=== PATIENT | female | born 1945 | race Caucasian/White ===

== ENCOUNTER 2024-12-09 11:41 | Outpatient (CLI) | payer OTHER ==
--- NOTE | 2024-12-09 17:46 | CARDIOLOGY REPORT ---
APPROVED REPORT EXAM: Comprehensive 2D, Doppler, and color-flow Echocardiogram. Patient Location: OUT-PATIENT Blood Pressure: 144/48 mmHg Heart Rate: 61 bpm Rhythm: SINUS Indications CORONARY ARTERY DISEASE CABG X1, AVR 2022 Steel Handler: Jo-Ann Lopez MD Previous echo: none available ? [facility] at [facility] 2D Dimensions RVDd 5.0 cm LA Diam5.2 cm M-Mode Dimensions Left Atrium(MM) 4.61 (2.5-4.0cm) IVSd 1.35 (0.7-1.1cm) LVDd 5.54 (4.0-5.6cm) Aortic Root 3.28 (2.2-3.7cm) PWd 1.19 (0.7-1.1cm) IVSs 1.62 cm MV EPSS 0.4 (<0.5cm) LVDs 3.06 (2.0-3.8cm) FS (%) 45 % PWs 1.59 cm ESV(Teich) 36.8 ml LVEF(%) 75 (>50%) Aortic Valve AoV Peak Suleman. 197.1 cm/s AoV VTI 47.8 cm AO Peak GR. 15.4 mmHg AO Mean GR. 9 mmHg LVOT VTI 31.41 cm LVOT Peak Suleman. 127.4 cm/s Mitral Valve MV E Velocity 174.6 cm/s MV Peak Gr. 13 mmHg MV DECEL TIME 214 ms MV A Velocity 52.5 cm/s MV Mean Gr. 3 mmHg E/A Ratio 3.3 MVA (PHT) 2.95 cm2 Tricuspid Valve TR P. Velocity 385 cm/s RAP ESTIMATE 10 mmHg TR Peak Gr. 59 mmHg RVSP 69 mmHg LEFT VENTRICLE Normal LV size and function. Mild concentric hypertrophy. Overall LVEF is 65-70%. RIGHT VENTRICLE RV is severely dilated in size with normal function. Estimated PA systolic pressure of 69 mm of mercu ry. ATRIA Left atrium is severely dilated. Mobile interatrial septum - no flow detected. AORTIC VALVE Bioprosthetic AVR appears well seated with trace perivalvular leak. Peak / mean gradients of 15 / 9 m mHG. Peak velocity is measured at 197 cm/sec. MITRAL VALVE Mild MV annular calcification without stenosis. Moderate regurgitation. TRICUSPID VALVE TV appears structurally normal with moderate regurgitation. PULMONIC VALVE Normal PV without stenosis, physiologic insufficiency. GREAT VESSELS Aortic root is normal in size. PERICARDIUM Normal pericardium. No effusion. Other Information Study Quality: Adequate Conclusion Overall LVEF is 65-70%. Normal LV size and function. Mild concentric hypertrophy. RV is severely dilated in size with normal function. Estimated PA systolic pressure of 69 mm of merc ury. Bioprosthetic AVR appears well seated with trace perivalvular leak. Peak / mean gradients of 15 / 9 mmHG. Peak velocity is measured at 197 cm/sec. Mild MV annular calcification without stenosis. Moderate regurgitation. TV appears structurally normal with moderate regurgitation. Normal PV without stenosis, physiologic insufficiency. Normal pericardium. No effusion.
== END 2024-12-09 23:59 | disposition home or self-care (01) ==
LOC: CARD DIAG 11:41
PROVIDERS: ATTEND Chiropractor
DX: I08.8 Other rheumatic multiple valve diseases (principal); I25.10 Atherosclerotic heart disease of native coronary artery without angina pectoris
CPT/HCPCS: 93306